=== PATIENT | female | born 1995 | race Caucasian/White ===

== ENCOUNTER 2017-09-11 18:24 | Observation (INO) ==
[2017-09-11 19:58] LABS: Bilirubin,Urine Negative (Negative); Blood,Urine Negative (Negative); Clarity,Urine Cloudy (Clear); Color,Urine Yellow (Yellow); Glucose,Urine (UA) Normal (Normal); Ketones,Urine Negative (Negative); Leukocyte Esterase,Urine Small (Negative); Nitrite,Urine Negative (Negative); Protein,Urine Negative (Neg-Trace); Specific Gravity,Urine < 1.005 (1.010-1.025); Urobilinogen,Urine Normal (Normal)
[2017-09-11 20:01] LABS: Bacteria,Urine Few per hpf (None-Few); Hyaline Casts,Urine None Seen per lpf (None-Few); RBC,Urine 0-3 per hpf (0-3); Squamous Epithelial Cell,Urine Many per lpf (None-Few)
[2017-09-11 20:13] LABS: Amphetamine Screen,Urine Negative ng/mL (Cutoff=1000); Barbiturate Screen,Urine Negative ng/mL (Cutoff=200); Benzodiazepines Screen,Urine Negative ng/mL (Cutoff=200); Cannabinoid Screen,Urine Negative ng/mL (Cutoff = 50); Cocaine Screen,Urine Negative ng/mL (Cutoff= 300); Opiate Screen,Urine Negative ng/mL (Cutoff=300); Phencyclidine Screen,Urine Negative ng/mL (Cutoff=25)
--- NOTE | 2017-09-11 23:34 | OB/GYN Progress Note ---
Date of Encounter: 09/11/17 Time of Encounter: 23:32 - Assessment and Plan (1) 35 weeks gestation of Current Visit: Yes Status: Acute Evaluated for labor. SVE 4cm/thick/high. No change in 1 1/2 hours. Labor precautions given and patient to return if contraction intensity increases. (2) Non-stress test reactive Current Visit: Yes Status: Acute FHR 140 bpm, moderate variability. + 15x15 accels, no decels. Category I Subjective - Subjective Principal diagnosis: Rule out labor Antepartum ROS: movement normal, contractions, no loss of fluid, no vaginal bleeding Objective - Vital Signs Vital Signs: Intake and Output 09/11/17 09/11/17 09/11/17 07:59 15:59 23:59 Other: Weight 96.162 kg Patient Weight 09/11/17 23:59 Weight 96.162 kg - Exam FHR: category 1 Auscultation: bilateral: normal Abdomen: Present: normal appearance, soft, gravid Uterus: Present: normal Cervical dilation: 4 Cervix effacement: Thick station: -3 Comments: No change during stay - Labs Labs: Abnormal lab results Urine Clarity Cloudy (Clear) A 09/11/17 19:40 Ur Specific Allen < 1.005 (1.010-1.025) L 09/11/17 19:40 Ur Leukocyte Esterase Small (Negative) H 09/11/17 19:40 Urine Microscopic WBC 5-15 per hpf (0-3) H 09/11/17 19:40 Ur Squamous Epith Cells Many per lpf (None-Few) H 09/11/17 19:40 Ur Culture Indicated? YES (NO) A 09/11/17 19:40
== END 2017-09-11 23:48 | disposition home or self-care (01) ==
LOC: 1NENUOBS
PROVIDERS: ADMIT Obstetrics & Gynecology; ATTEND Obstetrics & Gynecology

== ENCOUNTER 2017-09-12 19:53 | Inpatient (IN) ==
--- NOTE | 2017-09-12 16:19 | Discharge Summary ---
Date of Encounter: 09/12/17 Time of Encounter: 16:19 - Discharge Diagnosis (1) Decreased movement Priority: Secondary Status: Acute Comments: Patient feeling movement since she has been on the monitor. Audible movement heard while in patient room. Qualifiers: Fetus number: single or unspecified fetus Trimester: third trimester Qualified Code(s): O36.8130 - Decreased movements, third trimester, not applicable or unspecified (2) 35 weeks gestation of Priority: Primary Status: Acute Comments: Evaluate for labor and movement (3) Non-stress test reactive Priority: Secondary Status: Acute Comments: FHR 125 bpm moderate variability +15x15 accels, no decels. Category I tracing. - Discharge Medications Home Medications: Ferrous Sulfate [Iron] 325 mg PO DAILY 09/12/17 [History] Vit/Iron Fumarate/FA [ Tablet] 1 each PO DAILY 09/12/17 [ History] Allergies/Adverse Reactions: 3 Allergy/AdvReac Type Severity Reaction Status Date / Time No Known Allergies Allergy Verified 04/18/16 13:41 Date of admission: 09/12/17 14:44 Primary care physician: PCP NONE Discharging clinician: Louise Gaffney Anticipated date of discharge: 09/12/17 - Patient Status Disposition: Home, Self-Care Condition: Good Functional capacity at discharge: independent ambulation - Discharge Instructions Follow Up With: NONE,PCP [Primary Care Provider] - Bienvenido Reyez MD [Partnered Physician] - - Diet and Activity Activity: increase activity as tolerated Diet: regular diet Hospital Course TOP STEEP TENDER Time Attestation: Total time spent providing and/or coordinating discharge services: Exam - Constitutional General appearance IM: cooperative, A&O X 3, pleasant, no acute distress, answers questions appropriately - Respiratory Respiratory exam: Present: CTAB - Cardiovascular Cardiovascular exam IM: Present: RRR, +S1, +S2 - GI/Abdominal GI/Abdominal exam IM: normal bowel sounds, soft - Rectal Rectal exam: deferred - Neurological Exam Neurological exam: alert, normal gait, oriented X3 - Other Additional findings: FHR 125 bpm, moderate variability, + 15x15 accels, no decels. Category I tracing. Irregular uterine contractions. - VTE Reasons for not Prescribing Prophylaxis: Treatment not Indicated - Low risk for VTE
[~2017-09-12 19:53] MED LIST: Famotidine 20 MG/2 ML VIAL IVP PRN; Naloxone 0.4 MG/ML INJ IVP PRN; Ondansetron 4 MG/2 ML VIAL IVP PRN; Penicillin G Potassium 5,000,000 UNIT in D5% in Water (Mini-Bag+) 100 ML IVPB ONE
--- NOTE | 2017-09-12 19:57 | OB/GYN History & Physical ---
Date of Encounter: 09/12/17 Time of Encounter: 19:51 Assessment and Plan (1) Decreased movement Current visit: Yes Status: Acute reactive nst Qualifiers: Fetus number: single or unspecified fetus Trimester: third trimester Qualified Code(s): O36.8130 - Decreased movements, third trimester, not applicable or unspecified (2) 35 weeks gestation of Current visit: No Status: Acute admitted for labor GBS prophylaxis (3) Non-stress test reactive Current visit: No Status: Acute History of Present Illness Chief complaint: Contractions HPI: Ms. Painter is a 22 year old female at 35w6d presents to labor and delivery with complaints of contractions. Patient was in labor and delivery yesterday and dilated 4cm. Patient was 4 cm on admission today however, when cervix was checked prior to discharge patient was dilated 4.5cm. Patient was kept at that time for additional monitoring. After further monitoring patient continued to dilated to 6.5/80/-1. Patient denies LOF or VB. Blood type: A+, Rubella: Immune, Hep B: nonreactive, GBS: unknown. Will start GBS prophylaxis. Past Med Surg Social Fam HX - Past Medical History Medical history: asthma Psychiatric history: no psych history - Past Surgical History Surgical History: no surgical history - Social History Smoking Status: Current every day smoker Smokeless Tobacco Status: No Alcohol use: none Drug use: none - Family History Mother Living Status: Still Living Hx Family Cardiac Disorders: No Hx Family Respiratory Disorders: No Hx Family Cancer: No Hx Family GI Disorders: No Hx Family Endocrine Disorder: No Hx Family Neuromuscular Disorders: No Hx Family Neurologic Disorders: No Hx Family HEENT Disorders: No Hx Family Autoimmune Disorders: No Obstetrical History - Pregnancies : 3 Para: 1 Term: 1 : 0 Ab's: 1 Livin Medications and Allergies Ferrous Sulfate [Iron] 325 mg PO DAILY 09/12/17 [History] Vit/Iron Fumarate/FA [ Tablet] 1 each PO DAILY 09/12/17 [ History] 3 Allergy/AdvReac Type Severity Reaction Status Date / Time No Known Allergies Allergy Verified 04/18/16 13:41 Review of System OB - Constitutional Constitutional ROS IM: no chills, no fever(s), no headache(s) - Cardiovascular Cardiovascular: no edema, no palpitations, no syncope - Gastrointestinal Gastrointestinal: no constipation, no diarrhea, no heartburn, no nausea, no vomiting - Genitourinary Genitourinary: no dysuria, no flank pain, no urinary frequency, no urinary urgency, no vaginal discharge, no vaginal odor, no vaginal pruritis Exam - Constitutional Constitutional: well developed, well nourished, no acute distress, average body habitus - HEENT HEENT: Normocephaly, Mucus Membranes Moist - Neck Neck exam: full ROM, supple - Lungs Respiratory exam: CTAB - Cardiovascular Cardiovascular exam: RRR, +S1, +S2 - Abdomen Abdomen: Present: bowel sounds normal, gravid, non tender - Extremities Extremities exam: full ROM, normal capillary refill Deep Tendon Reflex Grade: 2+ Normal - Cervix Dilation: 6 (6.5) Effacement: 80 Station: -1 - Uterus Uterus exam: Present: normal size, normal contour - Anus/Rectum Anus/Rectum: Present: normal perianal skin - Comments Comments: FHR 135 bpm moderate variability +15x15 accels no decels noted. Cat. 1 tracing. Contractions 2-3 min apart. Results All other labs normal. - VTE Reasons for not Prescribing Prophylaxis: Treatment not Indicated - Low risk for VTE
[2017-09-12] MEDS ORDERED: Ringers Solution, Lactated 1,000 ML IVC SCH (20:00)
[2017-09-12 20:12] LABS: Basophils % 0.2 %; Eosinophils # 0.4 K/mcL (0.0-0.6); Eosinophils % 2.5 %; Hematocrit 34.4 % (35.3-44.9); Hemoglobin 11.4 g/dL (11.5-15.4); Immature Granulocytes % 0.6 % (0-4); Lymphocytes # 2.6 K/mcL (0.6-4.6); Lymphocytes % 17.1 %; Mean Corpuscular HGB Conc 33.1 g/dL (31.6-35.5); Mean Corpuscular Hemoglobin 28.6 pg (28.0-33.3); Mean Corpuscular Volume 86.4 fL (83.0-100.0); Mean Platelet Volume 10.6 fL (9.4-12.4); Monocytes % 6.4 %; Neutrophils # 11.2 K/mcL (1.6-8.9); Platelet Count 249 K/mcL (140-400); Red Blood Count 3.98 M/mcL (3.82-4.97); Red Cell Distribution Width 12.6 % (11.5-14.5); Segmented Neutrophils % 73.2 %
--- NOTE | 2017-09-12 20:21 | Anesthesia Evaluation PreOp ---
Date of Encounter: 09/12/17 Time of Encounter: 20:19 - Past History Planned Operation: enrique Cardiac History: Denies any Significant Hx Pulmonary History: Smoker (1/2 pack per day), Asthma (as a child) ORDER PICKER History: Denies Any Significant HX Other Medical History: Denies Any Significant HX Anesthesia History: No Prior Anesthetic Complications, Past Anesthesia (lap zayra) : Yes (35 plus 6, ) Alcohol Use: none Drug use: none Medications and Allergies Ferrous Sulfate [Iron] 325 mg PO DAILY 09/12/17 [History] Vit/Iron Fumarate/FA [ Tablet] 1 each PO DAILY 09/12/17 [ History] 3 Allergy/AdvReac Type Severity Reaction Status Date / Time No Known Allergies Allergy Verified 04/18/16 13:41 Anesthesia Results - Labs 09/12/17 20:05 Anesthesia Exam Height: 68 Weight: 95 - HEENT Pupil (Motor): Pupils equal Mallampati: II Teeth: Normal Oral Opening: Greater than 3 - ORDER PICKER LOC: Oriented ORDER PICKER Motor: Normal RUE, Normal LUE, Normal RLE, Normal LLE, Normal Face ORDER PICKER Sensory: Normal: RUE, LUE, RLE, LLE, Face - Cardiac Rhythm: Regular Murmur: None JVD: No Carotid Bruit: No - Pulmonary Breath Sounds: bilateral Clear Respiratory Effort: Symmetrical Anesthesia Assess/Plan ASA Score: 2 Modified [place] [employer] Scale for Level of Consciousness: Cooperative, oriented, and tranquil Anesthetic Plan: Regional Monitoring Plan: Standard Monitors
[2017-09-12] MEDS ORDERED: Epidural Premix (fent/bupiv) 110 ML EP ONE (20:25)
[2017-09-12] MEDS ORDERED: *HR* FentaNYL (PF) 100 MCG/2 ML VIAL ONE (20:25)
[2017-09-12] MEDS ORDERED: *HR* Ropivacaine/PF 0.2% 10 ML AMPUL ONE (20:25)
[2017-09-12 20:31] LABS: Amphetamine Screen,Urine Negative ng/mL (Cutoff=1000); Barbiturate Screen,Urine Negative ng/mL (Cutoff=200); Benzodiazepines Screen,Urine Negative ng/mL (Cutoff=200); Cannabinoid Screen,Urine Negative ng/mL (Cutoff = 50); Cocaine Screen,Urine Negative ng/mL (Cutoff= 300); Opiate Screen,Urine Negative ng/mL (Cutoff=300); Phencyclidine Screen,Urine Negative ng/mL (Cutoff=25)
[2017-09-13] MEDS ORDERED: Penicillin G Potassium 2,500,000 UNIT in D5% in Water 100 ML IVPB SCH
--- NOTE | 2017-09-13 00:16 | OB Labor Progress Note ---
Date of Encounter: 09/13/17 Time of Encounter: 00:13 Labor Progress Note - Subjective Subjective: Pt resting comfortably after epidural. Denies pain at this time. - Cervix Cervix: 7-8/50/-2 - Heart Tones Heart Tones: 140 bpm, moderate variability, +15x15 accels no decels. Category I tracing. - [place]: 2-4 minutes - Interventions Interventions: SVE, AROM for copious amount of clear fluid. - Plan Plan: Continue labor management. Anticipate
--- NOTE | 2017-09-13 02:19 | OB Labor Progress Note ---
Date of Encounter: 09/13/17 Time of Encounter: 02:17 Labor Progress Note - Subjective Subjective: Patient resting comfortably with epidural in place. Discussed POC with patient. Patient denies any questions or concerns. - Cervix Cervix: 8/90/-1 - Heart Tones Heart Tones: 140 bpm moderate variability +15x15 accels no decels noted. cat. 1 tracing - Edmond Edmond: irregular - Interventions Interventions: SVE - Plan Plan: Will augment labor with Pitocin.
[2017-09-13] MEDS ORDERED: Oxytocin 20 units/ LR 1000 mL 20 UNIT/1,000 ML BAG IVC SCH ×2 (02:30→06:56)
--- NOTE | 2017-09-13 04:51 | OB/GYN Procedure Note ---
Delivery - Delivery Date: 09/13/17 Provider: Louise Gaffney [facility]) Intrapartum events: none Delivery induction: none Delivery augmentation: rupture of membranes (@7.5 cm), pitocin (at 8 cm) Delivery monitor: external FHT, external uterine Anesthesia: epidural Estimated Blood Loss: 100 - Infant (s) Infant A Infant Delivery Date: 09/13/17 Delivery Time: 04:14 Presentation: vertex Position: ALBINO Route of delivery: Gender: Male Viability: Viable Pounds: 6 Ounces: 7 Weight Gram: 2925 kg at 1 minute: 7 at 5 mins: 8 Shoulder Dystocia: not encountered Placenta: spontaneous Cord: 3 umbilical vessels - Repair Episiotomy: none Laceration Description: Superficial (Repaired with 4-0 Vicryl) - Complications Delivery complications: none Delivery comments: Under maternal effort, spontaneous vaginal delivery of viable male infant over superficial perineal laceration repaired with 4-0 Vicryl. to maternal abdomen, cord clamped and cut after pulsation ceased. Spontaneous delivery of intact placenta. No meconium, nuchal cord or shoulder dystocia encountered. EBL 100 mL. Mother and stable in skin to skin care for 2 hour recovery. - Disposition Mom disposition: stable in LDR [place] disposition: stable in LDR
[2017-09-13] MEDS ORDERED: Benzocaine/Menthol 56 GM AEROSOL SPRAY TP PRN (06:56)
[2017-09-13] MEDS ORDERED: Acetaminophen 325 MG TABLET PO PRN (06:56)
[2017-09-13] MEDS ORDERED: NON-FORMULARY MEDICATION 1 EACH EACH (Prenatal Vit/Iron Fumarate/Fa [Prenatal Tablet] 1 EA PO SCH (09:00)
[2017-09-13] MEDS: Prenatal Vit/FA 1 EACH TABLET PO SCH (09:48)
[2017-09-13] MEDS: Ibuprofen 600 MG TABLET PO PRN ×2 (09:49→15:43)
[2017-09-14] MEDS: Ibuprofen 600 MG TABLET PO PRN ×2 (02:58→09:22)
[2017-09-14 08:23] VITALS: BP 127/84
[2017-09-14] MEDS: Prenatal Vit/FA 1 EACH TABLET PO SCH (09:22)
--- NOTE | 2017-09-14 10:05 | Discharge Summary ---
Date of Encounter: 09/14/17 Time of Encounter: 10:02 - Discharge Diagnosis (1) Vaginal delivery Priority: Primary Status: Acute (2) 35 weeks gestation of Priority: Primary Status: Resolved - Discharge Medications Prescriptions: Ibuprofen [Motrin] 600 mg PO Q6HR PRN #60 tablet PRN Reason: Cramping Home Medications: Ferrous Sulfate [Iron] 325 mg PO DAILY 09/12/17 [History] Vit/Iron Fumarate/FA [ Tablet] 1 each PO DAILY 09/12/17 [ History] Ibuprofen [Motrin] 600 mg PO Q6HR PRN #60 tablet 09/14/17 [Rx] Allergies/Adverse Reactions: 3 Allergy/AdvReac Type Severity Reaction Status Date / Time No Known Allergies Allergy Verified 04/18/16 13:41 Data Procedures and tests throughout hospitalization: Laboratory Tests 09/12/17 09/12/17 09/12/17 20:05 20:15 20:18 WBC 15.3 H RBC 3.98 Hgb 11.4 L Hct 34.4 L MCV 86.4 MCH 28.6 MCHC 33.1 RDW 12.6 Plt Count 249 MPV 10.6 Immature Gran % 0.6 Seg Neutrophils % 73.2 Lymphocytes % 17.1 Monocytes % 6.4 Eosinophils % 2.5 Basophils % 0.2 Neutrophils # 11.2 H Lymphocytes # 2.6 Monocytes # 1.0 Eosinophils # 0.4 Basophils # 0.0 Urine Opiates Screen Negative Ur Barbiturates Screen Negative Ur Phencyclidine Scrn Negative Ur Amphetamines Screen Negative U Benzodiazepines Scrn Negative Urine Cocaine Screen Negative U Marijuana (THC) Screen Negative Group B Strep (PCR) Negative Date of admission: 09/12/17 21:36 Primary care physician: PCP NONE Discharging clinician: Angela Perez Anticipated date of discharge: 09/14/17 - Patient Status Disposition: Home, Self-Care Condition: Good Functional capacity at discharge: independent ambulation Overall status at discharge: patient is progressing back to baseline - Discharge Instructions Follow Up With: Bienvenido Reyez MD [Partnered Physician] - - Diet and Activity Activity: increase activity as tolerated Diet: advance to your usual diet Hospital Course Reason for admission: active labor, IUP - Delivery: Episiotomy: none Other procedures: none complications: none Discharge diagnosis: delivery [place] baby: male Time Attestation: Total time spent providing and/or coordinating discharge services: Time Spent: Less than 30 minutes Exam - Constitutional Vitals: Temp Pulse Resp BP Pulse Ox 97.8 F 55 16 127/84 98 09/14/17 07:30 09/14/17 07:30 09/14/17 07:30 09/14/17 07:30 09/14/17 03:05 General appearance IM: cooperative, A&O X 3, pleasant, no acute distress, answers questions appropriately - Respiratory Respiratory exam: Present: CTAB. Absent: respiratory distress - Cardiovascular Cardiovascular exam IM: Present: RRR - Uterine Tone: Firm Uterus Position: 1 Finger Below Umbilicus - Extremities Exam Extremities exam IM: Absent: calf tenderness
== END 2017-09-14 14:08 | disposition home or self-care (01) | DRG 560 ==
LOC: 1NENULAB → 1NENUOBS 09-13 06:54
PROVIDERS: ADMIT Student in an Organized Health Care Education/Training Program; ATTEND Student in an Organized Health Care Education/Training Program